=== PATIENT | female | born 2000 | race Caucasian/White ===

== ENCOUNTER 2023-09-06 10:45 | Inpatient (IN) | payer OTHER ==
[~2023-09-06] VITALS: Ht 157.5 cm; Wt 86.2 kg
[2023-09-06 13:33] LABS: BASOPHILS 0.5 % (0-2); EOSINOPHILS 0.4 % (0-6); HEMATOCRIT 30.4 % (35.0-50.0); HEMOGLOBIN 9.7 g/dL (12.0-18.0); LYMPHOCYTES 18.9 % (24-44); MCH 23.7 (27-36); MCHC 31.8 g/dl (30-36); MCV 74.5 fl (81-99); MONOCYTES 7.2 % (0-12); PLATELET COUNT 361 K/uL (140-440); RBC 4.08 M/ul (4.3-5.7); RDW 17.7 (10.5-15.0)
[2023-09-06 14:06] VITALS: BP 138/78
[2023-09-06 14:11] LABS: ABO A; RH NEGATIVE
[2023-09-06 14:12] LABS: ANTIBODY SCREEN NEGATIVE
--- NOTE | 2023-09-06 15:20 | NUR ---
both nares swabbed without complication.
[2023-09-06 15:35] LABS: AMPHETAMINES, URINE NEGATIVE (NEGATIVE); BARBITURATES, URINE NEGATIVE (NEGATIVE); BENZODIAZEPINE, URINE NEGATIVE (NEGATIVE); BUPRENORPHINE, URINE NEGATIVE (NEGATIVE); CANNABINOID, URINE NEGATIVE (NEGATIVE); COCAINE, URINE NEGATIVE (NEGATIVE); ECSTASY, URINE NEGATIVE (NEGATIVE); FENTANYL, URINE NEGATIVE (NEGATIVE); METHADONE, URINE NEGATIVE (NEGATIVE); OPIATES, URINE NEGATIVE (NEGATIVE); OXYCODONE, URINE NEGATIVE (NEGATIVE); PHENCYCLIDINE, URINE NEGATIVE (NEGATIVE)
[2023-09-06 16:03] LABS: INFLUENZA B NAA NEGATIVE (NEGATIVE); RESPIRATORY SYNCYTIAL VIR NAA NEGATIVE (NEGATIVE)
--- NOTE | 2023-09-06 20:52 | PR ---
[facility] [address] [facility] [place] [address] Signed Progress Notes IP Datetime Report Generated by CPN: 09/06/2023 20:52 PROGRESS NOTES: [id number] Impression: Normal Progression of Labor Procedures: Artificial ROM Plan: Continue Present Management VITAL SIGNS: [id number] Vital Signs: Reviewed; Within Normal Limits EXAM: [id number] Dilatation: 3.0 Effacement: 70 Station: -2 Contractions: not picking up well MEMBRANES: [id number] Comments: Comfortable after epidural. Progressing. Will continue. FETUS A: [id number] Presentation: Vertex FETUS B: [id number] Signing Physician: Dionna Bates MD Copies: ~ *Electronically Signed* 09/06/232051 DIONNA BATES MD PATIENT NAME: ROSARIO PETERS PROGRESS NOTE DATE OF : 01 PHYSICIAN: DIONNA BATES MD RPT #: [id number] REPORT IS CONFIDENTIAL AND NOT TO BE RELEASED WITHOUT AUTHORIZATION
--- NOTE | 2023-09-07 07:28 | NUR ---
EXERCISED MINISTRY OF PRESENCE. CONDUCTED SERVICE OF COMMENDATION FOR BABY AT REQUEST OF PARENTS. ANNOINTED BABY WITH OIL ON FOREHEAD, ONE HAND AND ONE FOOT.
[2023-09-08 05:33] LABS: HEMATOCRIT 25.4 % (35.0-50.0); HEMOGLOBIN 7.9 g/dL (12.0-18.0); MCH 23.4 (27-36); MCHC 31.2 g/dl (30-36); MCV 74.9 fl (81-99); RBC 3.39 M/ul (4.3-5.7); RDW 17.2 (10.5-15.0)
--- NOTE | 2023-09-08 10:17 | PR ---
[facility] [address] [facility] [place], [place] [address] Signed PP Progress Notes Datetime Report Generated by CPN: 09/08/2023 10:17 SUBJECTIVE: [id number] Pain: Within Normal Limits Nausea/Vomiting: Denies Vital Signs: [id number] Vital Signs: Reviewed; Within Normal Limits Cardiovascular: Not Done Respiratory: Not Done Abdomen/Uterus: Abnormal Lochia: Normal Vulva/Perineum: Not Done Breasts: Not Done CVA Tenderness: Not Done Extremities: Normal Incision: Not Applicable Progress: Not Applicable Exam Comments: Fundus firm, NT @ U-2. H/H 7.9/25.4, WBC 17.2, plat 296k IMPRESSION/PLAN/PROCEDURES: [id number] Impression: Normal Progression Plan: Discharge Procedures: Rhogam Progress Notes: Doing well. She is ready for D/C. Signing Physician: Dionna Bates MD Copies: ~ *Electronically Signed* 09/08/23 1017 DIONNA BATES MD PATIENT NAME: ROSARIO PETERS PROGRESS NOTE DATE OF : 01 PHYSICIAN: DIONNA BATES MD RPT #: [id number] REPORT IS CONFIDENTIAL AND NOT TO BE RELEASED WITHOUT AUTHORIZATION
[2023-09-08 13:19] LABS: FETAL HGB - PERCENT FETAL RBCS 0.042 % (0.000-0.124)
== END 2023-09-08 12:45 | disposition home or self-care (01) | DRG 807 ==
LOC: RAD 10:45 → US 10:45 → FBC 12:45 → MS 09-07 18:16 → FBC 09-07 18:44 → FBCO 09-11 01:33
PROVIDERS: ADMIT Obstetrics & Gynecology; ATTEND Obstetrics & Gynecology
PROC: 10E0XZZ Delivery of Products of Conception, External Approach (ICD-10-PCS; principal; 2023-09-06)
PROC: 0KQM0ZZ Repair Perineum Muscle, Open Approach (ICD-10-PCS; 2023-09-06)
PROC: 3E0R3BZ Introduction of Anesthetic Agent into Spinal Canal, Percutaneous Approach (ICD-10-PCS; 2023-09-06)
PROC: 00HU33Z Insertion of Infusion Device into Spinal Canal, Percutaneous Approach (ICD-10-PCS; 2023-09-06)
PROC: 10907ZC Drainage of Amniotic Fluid, Therapeutic from Products of Conception, Via Natural or Artificial Opening (ICD-10-PCS; 2023-09-06)
PROC: 3E0DXGC Introduction of Other Therapeutic Substance into Mouth and Pharynx, External Approach (ICD-10-PCS; 2023-09-06)
DX: O36.4XX0 Maternal care for intrauterine death, not applicable or unspecified (principal); Z37.1 Single stillbirth; O70.1 Second degree perineal laceration during delivery; Z98.890 Other specified postprocedural states; Z3A.39 39 weeks gestation of pregnancy; O69.1XX0 Labor and delivery complicated by cord around neck, with compression, not applicable or unspecified; O77.0 Labor and delivery complicated by meconium in amniotic fluid
CPT/HCPCS: 01961; 36415; 76815; 76818; 80307; 85025; 85027; 86356; 86850; 86900; 86901; 87502; A9270; C9803; J2405; J2590; J2790; J2795; J3010; J7121; U0002

== ENCOUNTER 2024-03-29 20:13 | Emergency (ER) | payer OTHER ==
[~2024-03-29] VITALS: Ht 152.4 cm; Wt 80.1 kg
[2024-03-29] MEDS ORDERED: ondansetron HCL 4 MG/2 ML VIAL IV ONE (20:45)
[2024-03-29 21:14] LABS: BILIRUBIN, URINE NEGATIVE (negative); BLOOD/HGB, URINE NEGATIVE (Negative); KETONE, URINE NEGATIVE (Negative); LEUK ESTERASE, URINE NEGATIVE (negative); NITRITE, URINE NEGATIVE (negative)
[2024-03-29 21:27] LABS: BASOPHILS 0.9 % (0-2); EOSINOPHILS 1.6 % (0-6); HEMATOCRIT 35.3 % (35.0-50.0); HEMOGLOBIN 11.4 g/dL (12.0-18.0); LYMPHOCYTES 31.9 % (24-44); MCH 23.8 (27-36); MCHC 32.4 g/dl (30-36); MCV 73.6 fl (81-99); MONOCYTES 8.3 % (0-12); NEUTROPHILS 57.3 % (39-80); PLATELET COUNT 337 K/uL (140-440); RDW 16.9 (10.5-15.0)
[2024-03-29 21:47] LABS: ALBUMIN 3.7 g/dL (3.4-5.0); ALBUMIN/GLOBULIN RATIO 0.84 (1.1-2.4); ANION GAP 12.5 (7-21); BILIRUBIN, TOTAL 0.3 ng/dL (0.2-1.0); BUN/CREATININE RATIO 8.33 (6.0-28.6); CALCIUM 8.7 mg/dL (8.5-10.1); CREATININE, SERUM 0.72 mg/dL (0.55-1.02); POTASSIUM 3.5 mmol/L (3.5-5.1); PROTEIN, TOTAL 8.1 g/dL (6.4-8.2)
[2024-03-29] MEDS ORDERED: HYDROCODON-ACE1 EA10 PO (22:44)
[2024-03-29] MEDS ORDERED: MELOXICAM7.5 MG PO (22:44)
[2024-03-29] MEDS ORDERED: ONDANSETRON 4 MG HOME.PACK SL ONE (23:00)
[2024-03-29] MEDS ORDERED: HYDROCODONE BIT/ACETAMINOPHEN 5/325 MG 1 TAB HOME.PACK PO ONE (23:00)
[2024-03-29 23:09] VITALS: BP 109/72
== END 2024-03-29 23:11 | disposition home or self-care (01) ==
LOC: ED 20:13
PROVIDERS: Family Medicine
DX: K63.89 Other specified diseases of intestine (principal)
CPT/HCPCS: 36415; 74177; 80053; 81003; 83690; 84703; 85025; A9270; Q9967